=== PATIENT | female | born 1960 | race Caucasian/White ===

== ENCOUNTER 2022-03-14 12:33 | Emergency (ER) | payer MEDICARE, MEDICAID, SELFPAY ==
--- NOTE | 2022-03-14 12:45 | DI.RAD_ITS ---
Exam(s) XR CHEST 2V PA LATERAL EXAM: XR CHEST 2V PA LATERAL CLINICAL HISTORY: cough, r/o acute disease TECHNIQUE: 2D digital imaging was performed. COMPARISON: No exams were available for comparison FINDINGS: HEART: Normal size. Aorta: Not dilated. Somewhat tortuous. PULMONARY VASCULATURE: Normal. LUNGS: Clear. PLEURAL SPACE: No pleural effusion or pneumothorax. BONE:Unremarkable for age. IMPRESSION: No acute abnormality. DATA REPOSITORY: RADIATION DOSE DELIVERED:
[2022-03-14 12:46] VITALS: BP 155/103; PULSE 76; RESP 20; TEMP 36.6; O2SAT 99
[2022-03-14 14:17] VITALS: PULSE 60; O2SAT 100
[2022-03-14] MEDS: Albuterol/Ipratropium 3 ML UPD VIAL UPD (14:17)
[2022-03-14 14:27] LABS: COVID-19 PCR Negative (Negative); Influenza A PCR Negative (Negative); Influenza B PCR Negative (Negative); RSV PCR Negative (Negative)
[2022-03-14 14:37] LABS: Source Nasopharynx
--- NOTE | 2022-03-14 15:06 | W.ED.GENAD ---
Discharge Plan Disposition Patient Disposition: Home Condition: Stable Discharge Details Clinical Impression: Bronchitis Primary Care Provider: Ronda Tyler ED Provider: Abbie Cote Home Meds and New Rx's Prescriptions: New albuterol sulfate 90 mcg/actuation HFA aerosol inhaler 2 puff inhalation Q6H PRN (Reason: shortness of breath or wheezing) Qty: 8.5 0RF benzonatate 100 mg capsule 100 mg PO TID PRN (Reason: cough) Qty: 10 0RF amoxicillin-pot clavulanate 875-125 mg tablet 1 tab PO BID 10 Days Qty: 20 0RF Continued levothyroxine 88 mcg tablet 88 mcg PO 1XD Label Comments: take 1 tablet by mouth every morning ON AN EMPTY STOMACH gabapentin 300 mg capsule 1 cap PO 1XD Label Comments: take 1 capsule by mouth at bedtime Discharge Instructions Instructions: Acute Bronchitis (ED) Additional Instructions: Drink plenty of fluids and get plenty of rest. Alternate tylenol and motrin as needed and directed for pain. Prescriptions for cough medication, antibiotics and an inhaler have been sent electronically to your pharmacy to take as directed. Follow-up with your primary care doctor in 1 week. Return to the emergency department with any worsening or new concerning symptoms. Discharge Data Discharge Date/Time-TO BE ENTERED AT DEPARTURE: 03/14/22 15:30 Discharge Physician: Abbie Cote Medical Decision Making 58-year-old female with a history of Sjogren's syndrome and hypothyroidism presents for chronic cough, occasionally productive of yellow sputum and intermittent shortness of breath for the past 2 to 3 weeks. Blood pressure moderately hypertensive, remainder vitals within normal limits. She has normal oxygen saturation, respiratory rate and she is afebrile. She appears comfortable and nontoxic. Normal ENT exam. Lungs clear throughout without wheezing, rales or rhonchi. Differential diagnosis includes COVID, influenza, RSV, bronchitis and pneumonia. History of presentation does not appear consistent with ACS, PE or dissection. Will give a DuoNeb and reassess. Labs and imaging reviewed and unremarkable. She is negative for influenza, COVID, RSV and no acute findings on chest x-ray. Patient reassessed and she feels much better after breathing treatment would like to go home. As she is an occasional smoker, will cover with antibiotics. Discussed that her symptoms can be secondary to a sinus infection or bronchitis. She declines steroid prescription. A prescription for inhaler, Tessalon Perles and Augmentin sent electronically to her pharmacy. Advised to follow up with the primary care doctor for re-evaluation. Usual and customary return precautions given prior to discharge. Medical Records Medical records reviewed: Yes I reviewed the patient's medical records. Imaging Data Radiologic Study: Radiologist's impression: XR CHEST 2V PA ? LATERAL CLINICAL HISTORY:? cough, r/o acute disease TECHNIQUE:? 2D digital imaging was performed. COMPARISON:? No exams were available for comparison FINDINGS: HEART: Normal size.? Aorta: Not dilated.? Somewhat tortuous. PULMONARY VASCULATURE: Normal. LUNGS: Clear. ? PLEURAL SPACE: No pleural effusion or pneumothorax. BONE:Unremarkable for age.? IMPRESSION: No acute abnormality.? Lab Data Lab results reviewed: Yes I reviewed the patient's lab results. Labs: Laboratory Tests Range/Units 03/14/22 13:20 COVID-19 Source Nasopharynx SARS-CoV-2 (PCR) (Negative) Negative Influenza Type A (PCR) (Negative) Negative Influenza Type B (PCR) (Negative) Negative RSV (PCR) (Negative) Negative HPI General Mode of arrival: ambulatory. Date/Time Provider Initiated Documentation: 03/14/22 12:55. Limitations to Documentation: no limitations. Information obtained by: patient. HPI Narrative: Patient is a 61-year-old female with a history of Sjogren's syndrome and hypothyroidism presents for chronic cough of the past 2 to 3 weeks. Patient states that is mainly dry but occasionally she coughs up yellow sputum. She states she mainly has mild clear nasal discharge but occasionally blows out green nasal discharge. She states the cough mainly bothers her at nighttime when she tries to sleep. She states had COVID 1 to 2 weeks prior to [place] and mainly had body aches, fatigue and mild sore throat and mild cough. She states she feels that her symptoms mostly resolved except her cough worsened. She does admit to occasional shortness of breath with coughing. She denies any known fever, chest pain, nausea, vomiting, abdominal pain, diarrhea, leg pain or swelling. Related Data Home Medications Medication Instructions Recorded Confirmed albuterol sulfate 90 mcg/actuation 2 puff inhalation Q6H PRN 03/14/22 aerosol inhaler shortness of breath or wheezing #8.5 grams amoxicillin 875 mg-potassium 1 tab PO BID 10 days #20 tabs 03/14/22 clavulanate 125 mg tablet benzonatate 100 mg capsule 100 mg PO TID PRN cough #10 caps 03/14/22 gabapentin 300 mg capsule 1 cap PO 1XD 03/14/22 03/14/22 levothyroxine 88 mcg tablet 88 mcg PO 1XD 03/14/22 03/14/22 Previous Rx's Medication Instructions Recorded albuterol sulfate 90 mcg/actuation 2 puff inhalation Q6H PRN 03/14/22 aerosol inhaler shortness of breath or wheezing #8.5 grams amoxicillin 875 mg-potassium 1 tab PO BID 10 days #20 tabs 03/14/22 clavulanate 125 mg tablet benzonatate 100 mg capsule 100 mg PO TID PRN cough #10 caps 03/14/22 Allergies Allergy/AdvReac Type Severity Reaction Status Date / Time codeine AdvReac Intermediate Dizziness/L Unverified 03/14/22 12:52 ighthead General Stated Complaint: RespSymp KASEY: 4 Review of Systems All systems reviewed & are unremarkable except as noted in HPI and below Constitutional Constitutional: Reports as per HPI, Denies chills and Denies fever(s) Eyes Eyes: Denies blurry vision ENT Ears, Nose, Mouth, and Throat: Denies dizziness, Denies sore throat and Denies throat swelling Cardiovascular Cardiovascular: Denies chest pain and Reports dyspnea Respiratory Respiratory: Reports cough and Reports dyspnea Gastrointestinal Gastrointestinal: Denies abdominal pain, Denies diarrhea and Denies vomiting Genitourinary Genitourinary: Denies hematuria and Denies dysuria Musculoskeletal Musculoskeletal: Denies back pain and Denies numbness Integumentary/Breasts Skin/Breast: Denies lesions and Denies rash Neurologic Neurologic: Denies dizziness, Denies localized weakness and Denies numbness Allergic/Immunologic Allergic/Immunologic: Denies throat swelling PFSH All Active Problems (Updated 03/14/22 @ 15:18 by Abbie Cote DO) Bronchitis (Acute) Medical History (Updated 03/14/22 @ 15:18 by Abbie Cote DO) Hypothyroidism Sjogrens syndrome Social History Smoking/Tobacco Use Status: Never Smoking risk assessment performed?: Yes Alcohol Intake: current Alcohol Intake frequency: a few times a month Drug use: Never Substance use type: does not use Do you feel safe at home: Yes Do you feel safe in your relationship?: Yes Exam Const General: cooperative and no acute distress Orientation: alert, awake and oriented x3 HENMT Head: normal to inspection Face and sinus: normal facial exam Eyes General: appearance normal, both eyes and all related structures Pupils: PERRL EOM: EOM intact bilaterally Neck Neck: normal visual inspection and No submandibular swelling Lymphatic: no lymphadenopathy noted Chest Chest: normal inspection of the chest and no tenderness Resp Effort & Inspection: normal respiratory effort and able to speak in complete sentences Auscultation: clear to auscultation bilaterally Cardio Rate: regular rate Rhythm: regular rhythm GI Inspection: normal to inspection Palpation: soft, not firm, not rigid and nontender Auscultation: normal bowel sounds Back/Spine/Pelvis Thoracic/Lumbar Spine: thoracic and lumbar spine normal to inspection Pelvis: no pain with anterior-posterior compression Skin General skin exam: no rashes or lesions noted Neuro General: patient alert, patient awake and patient oriented x3 Cognition: normal cognition Speech: speech normal Motor: muscle tone normal throughout Sensory Exam: no sensory deficits noted Extrem General: normal to inspection, full ROM, capillary refill normal, no calf tenderness bilaterally and no edema Psych Appearance: grossly normal Mental Status: mental status grossly normal Speech and Movement: speech and movement normal Affect: normal affect Course Vital Signs Vital signs: Vital Signs Temperature 97.9 F 03/14/22 12:46 Pulse 76 03/14/22 12:46 Respiratory Rate 20 03/14/22 12:46 Blood Pressure 155/103 H 03/14/22 12:46 Pulse Oximetry 99 03/14/22 12:46 Temperature 97.9 F 03/14/22 12:46 Temperature Source Oral 03/14/22 12:46 Pulse 60 03/14/22 14:17 Respiratory Rate 20 03/14/22 12:46 Respiratory Effort 03/14/22 14:05 Respiratory Depth Normal 03/14/22 14:05 Blood Pressure 155/103 H 03/14/22 12:46 Blood Pressure Position Sitting 03/14/22 12:46 Pulse Oximetry 100 03/14/22 14:17 Oxygen Delivery Method Room Air 03/14/22 12:46 Oxygen Flow Rate 0 03/14/22 12:46 Lab/Test Results Lab/Test Results: Laboratory Tests Range/Units 03/14/22 13:20 COVID-19 Source Nasopharynx SARS-CoV-2 (PCR) (Negative) Negative Influenza Type A (PCR) (Negative) Negative Influenza Type B (PCR) (Negative) Negative RSV (PCR) (Negative) Negative
== END 2022-03-14 15:30 | disposition home or self-care (01) ==
PROVIDERS: Emergency Provider Physician Assistant; PCP Family Medicine
DX: J40 Bronchitis, not specified as acute or chronic (principal); Z20.822 Contact with and (suspected) exposure to COVID-19
CPT/HCPCS: 87637; 94640; 99283; 71046; 99284; J7620

== ENCOUNTER 2022-06-01 09:36 | Outpatient (REF) | payer MEDICARE, SELFPAY ==
[2022-06-01 17:00] LABS: Anion Gap 8.2 mmol/L (3-11); BUN 18 mg/dL (7-18); CO2 27.8 mmol/L (21.0-32.0); CREATININE 0.8 mg/dL (0.55-1.02); Calcium 9.2 mg/dL (8.5-10.1); Calculated LDL 139 mg/dL (<100); Chloride 105 mmol/L (98-107); Cholesterol 243 mg/dL (<200); Estimated GFR 82.23 (mL/min/1.73m2); Glucose 101 mg/dL (74-106); HDL Cholesterol 79 mg/dL (40-60); Potassium 4.4 mmol/L (3.5-5.1); Sodium 141 mmol/L (136-145); TSH 1.89 uIU/mL (0.36-3.74); Triglyceride 129 mg/dL (<150)
[2022-06-01 17:11] LABS: Vitamin D 25 Total 36.7 ng/mL (30-100)
== END 2022-06-01 09:37 | disposition home or self-care (01) ==
LOC: NCHCN 09:36
PROVIDERS: PCP Family Medicine; Visit Provider Family Medicine
DX: E55.9 Vitamin D deficiency, unspecified (principal); E06.3 Autoimmune thyroiditis; R03.0 Elevated blood-pressure reading, without diagnosis of hypertension
CPT/HCPCS: 80048; 80061; 82306; 84443

== ENCOUNTER 2022-11-04 15:49 | Outpatient (REF) | payer MEDICARE, MEDICAID, SELFPAY ==
[2022-11-04 16:43] LABS: Calculated LDL 113 mg/dL (<100); Cholesterol 200 mg/dL (<200); HDL Cholesterol 63 mg/dL (40-60); Triglyceride 120 mg/dL (<150)
== END 2022-11-04 15:50 | disposition home or self-care (01) ==
LOC: NCHCN 15:49
PROVIDERS: PCP Family Medicine; Visit Provider Family Medicine
DX: E78.5 Hyperlipidemia, unspecified (principal)
CPT/HCPCS: 80061

== ENCOUNTER → 2023-04-14 02:08 | Outpatient (CLI) | payer MEDICARE, MEDICAID, SELFPAY ==
--- NOTE | 2023-04-14 12:44 | DI.RAD_ITS ---
Exam(s) XR CHEST 2V PA LATERAL EXAM: XR CHEST 2V PA LATERAL CLINICAL HISTORY: WHEEZING,R06.2. TECHNIQUE: 2D digital imaging was performed. COMPARISON: CR XR CHEST 2V PA LATERAL from 03/14/2022 FINDINGS: 2 views: Heart size is normal. The mediastinum is not widened. Lungs are clear. No infiltrates nor pleural effusions. IMPRESSION: No acute pulmonary findings. DATA REPOSITORY: RADIATION DOSE DELIVERED:
== END ==
PROVIDERS: PCP Family Medicine; Visit Provider Family Medicine
DX: R06.2 Wheezing (principal)
CPT/HCPCS: 71046

== ENCOUNTER 2023-05-16 04:33 | Outpatient (CLI) | payer MEDICARE, MEDICAID, SELFPAY ==
[2023-05-16] MEDS: Levalbuterol HFA 15 GM INH 4 PUFF IH (14:38)
[2023-05-16] MEDS: Inhaler, Assist Device 1 EACH MC (14:38)
--- NOTE | 2023-05-16 15:25 | W.PFT ---
Date of service: 05/16/23 Time of Service: 12:54 Pulmonary Function Test Result Indications: Dyspnea Interpretation Spirometry: There is no airflow limitation. No bronchodilator response. Lung Volumes: Normal lung volumes Diffusion Capacity: Normal diffusion Airway Pressure: Normal airways resistance Impression Normal pulmonary function testing Clinical Correlation therefore is recommended.
== END 2023-05-16 04:34 | disposition home or self-care (01) ==
PROVIDERS: PCP Family Medicine; Visit Provider Family Medicine
DX: J44.9 Chronic obstructive pulmonary disease, unspecified (principal)
CPT/HCPCS: 94060; 94726; 94729

== ENCOUNTER 2023-06-14 14:43 | Outpatient (REF) | payer MEDICARE, MEDICAID, SELFPAY ==
[2023-06-14 15:12] LABS: Anion Gap 8.8 mmol/L (3-11); BUN 17 mg/dL (7-18); CO2 28.2 mmol/L (21.0-32.0); CREATININE 0.7 mg/dL (0.55-1.02); Calculated LDL 134 mg/dL (<100); Chloride 106 mmol/L (98-107); Cholesterol 237 mg/dL (<200); Estimated GFR 95.92 (mL/min/1.73m2); Glucose 92 mg/dL (74-106); HDL Cholesterol 69 mg/dL (40-60); Potassium 4.4 mmol/L (3.5-5.1); Sodium 143 mmol/L (136-145); TSH (W/Ref FT4) 0.33 uIU/mL (0.36-3.74); Triglyceride 171 mg/dL (<150)
== END 2023-06-14 14:44 | disposition home or self-care (01) ==
LOC: NCHCN 14:43
PROVIDERS: PCP Family Medicine; Visit Provider Family Medicine
DX: E06.3 Autoimmune thyroiditis (principal); R03.0 Elevated blood-pressure reading, without diagnosis of hypertension; E78.5 Hyperlipidemia, unspecified
CPT/HCPCS: 80048; 80061; 84439; 84443

== ENCOUNTER 2023-06-22 15:41 | Outpatient (REF) | payer MEDICARE, MEDICAID, SELFPAY ==
[2023-06-22 16:29] LABS: TSH (W/Ref FT4) 0.23 uIU/mL (0.36-3.74)
[2023-06-22 16:52] LABS: FREE T4 1.13 ng/dL (0.76-1.46)
== END 2023-06-22 15:42 | disposition home or self-care (01) ==
LOC: NCHCN 15:41
PROVIDERS: PCP Family Medicine; Visit Provider Family Medicine
DX: E06.3 Autoimmune thyroiditis (principal)
CPT/HCPCS: 84439; 84443

== ENCOUNTER 2023-10-03 13:01 | Outpatient (REF) | payer MEDICARE, MEDICAID, SELFPAY ==
[2023-10-03 14:59] LABS: TSH 1.68 uIU/Ml (0.36-3.74)
== END 2023-10-03 13:02 | disposition home or self-care (01) ==
LOC: NCHCN 13:01
PROVIDERS: PCP Family Medicine; Visit Provider Family Medicine
DX: E03.9 Hypothyroidism, unspecified (principal)
CPT/HCPCS: 84443

== ENCOUNTER 2024-01-30 08:57 | Outpatient (REF) | payer MEDICARE, MEDICAID, SELFPAY ==
[2024-01-30 14:50] LABS: TSH (W/Ref FT4) 4.17 uIU/mL (0.36-3.74)
[2024-01-30 15:08] LABS: FREE T4 0.94 ng/dL (0.76-1.46)
== END 2024-01-30 08:58 | disposition home or self-care (01) ==
LOC: NCHCN 08:57
PROVIDERS: PCP Family Medicine; Visit Provider Family Medicine
DX: E03.9 Hypothyroidism, unspecified (principal)
CPT/HCPCS: 84439; 84443

== ENCOUNTER 2024-03-26 18:22 | Outpatient (REF) | payer MEDICARE, SELFPAY ==
[2024-03-26 21:50] LABS: TSH 2.96 uIU/mL (0.36-3.74)
== END 2024-03-26 18:23 | disposition home or self-care (01) ==
LOC: NCHCN 18:22
PROVIDERS: PCP Family Medicine; Visit Provider Family Medicine
DX: E03.9 Hypothyroidism, unspecified (principal)
CPT/HCPCS: 84443

== ENCOUNTER 2024-07-25 18:42 | Outpatient (REF) | payer MEDICARE, MEDICAID, SELFPAY ==
[2024-07-25 16:35] LABS: Abs Immature Grans 0.01 10^3/uL (0.0-0.06); Absolute Basophil Count 0.05 10^3/uL (0.0-0.2); Absolute Lymphocyte Count 1.47 10^3/uL (1.2-3.4); Absolute Monocyte Count 0.41 10^3/uL (0.1-0.8); Absolute Neutrophil Count 2.58 10^3/uL (1.2-6.7); Basophils % 1.1 %; Eosinophils % 4.2 %; HCT 39.6 % (36.0-46.0); HGB 13.3 g/dL (11.2-15.7); Immature Grans % 0.2 %; Lymphocytes % 31.1 %; MCH 30.2 pg (27.0-33.0); MCHC 33.6 % (32.0-36.0); MCV 90 fL (80-95); MPV 10.3 fL (8.0-11.0); Monocytes % 8.7 %; Neutrophils % 54.7 %; Platelet Count 254 10^3/uL (130-400); RDW 12.5 % (11.7-14.6); RDW-SD 41.2 fL; WBC 4.72 10^3/uL (4.4-10.8)
[2024-07-25 17:01] LABS: ALT 35 U/L (14-59); AST 25 U/L (15-37); Albumin 3.9 g/dL (3.4-5.0); Alkaline Phosphatase 57 U/L (46-116); Anion Gap 6.1 mmol/L (3-11); BUN 14 mg/dL (7-18); Bilirubin, Total 0.5 mg/dL (0.2-1.0); CO2 28.9 mmol/L (21.0-32.0); CREATININE 0.8 mg/dL (0.55-1.02); Calcium 9.5 mg/dL (8.5-10.1); Calculated LDL 127 mg/dL (<100); Chloride 104 mmol/L (98-107); Cholesterol 221 mg/dL (<200); Estimated GFR 81.21 (mL/min/1.73m2); Glucose 95 mg/dL (74-106); HDL Cholesterol 64 mg/dL (>or=50); Potassium 4.2 mmol/L (3.5-5.1); Sodium 139 mmol/L (136-145); TSH (W/Ref FT4) 3.36 uIU/mL (0.36-3.74); Triglyceride 151 mg/dL (<150)
[2024-07-25 17:25] LABS: Lipase 42 U/L (<78)
== END 2024-07-25 18:43 | disposition home or self-care (01) ==
LOC: NCHCN 18:42
PROVIDERS: PCP Family Medicine; Visit Provider Family Medicine
DX: E78.5 Hyperlipidemia, unspecified (principal); R10.10 Upper abdominal pain, unspecified; E03.9 Hypothyroidism, unspecified
CPT/HCPCS: 80053; 80061; 83690; 84443; 85025